=== PATIENT | female | born 1950 ===

== ENCOUNTER 2023-05-24 19:42 | Emergency (ER) | payer MEDICARE, SELFPAY ==
--- NOTE | ~2023-05-24 | XR_ITS ---
EXAMINATION: XR ELBOW, LEFT CLINICAL INFORMATION: Pain status-post fall. COMPARISON: None available. TECHNIQUE: AP, lateral, and oblique views of the left elbow. FINDINGS: The bones and soft tissues are normal. No fracture or joint effusion. Alignment is anatomic. Joint spaces are maintained. XR/XR elbow LT 2V IMPRESSION: Normal left elbow.
--- NOTE | ~2023-05-24 | CT_ITS ---
EXAMINATION: CT PELVIS WITHOUT CONTRAST CLINICAL INFORMATION: Pelvis fracture, urinary retention, rule out urologic injury COMPARISON: Radiographs 05/24/2023 TECHNIQUE: Helical scanning was performed with submillimeter collimation through the pelvis. Sagittal and coronal multiplanar 2-D reconstructions were obtained. This CT examination was performed using dose optimization techniques as appropriate, variously including the following: *Automated exposure control *Adjustment of mA and/or kV according to patient size (this includes techniques or standardized protocols for targeted exams where dose is matched to indication/reason for exam; i.e. extremities or head) *Use of iterative reconstruction technique DLP: 410 mGy-cm FINDINGS: There are mildly displaced fractures of the left superior and inferior pubic rami. Alignment across the hips is anatomic. Sacroiliac joints and pubic symphysis are intact with degenerative change. Moderately distended urinary bladder without wall thickening. There is mild hematoma adjacent to the left aspect of the bladder in keeping with sequelae of pelvic fractures, without findings to suggest bladder injury. Uterus and adnexa are grossly unremarkable. Included portions of the small and large bowel show no evidence of obstruction or significant wall thickening. Colonic diverticulosis is noted. The appendix is unremarkable. No free air identified. There is scattered atherosclerotic calcification. CT/CT pelvis wo IV con IMPRESSION: Mildly displaced fractures of the left superior and inferior pubic rami. Mild adjacent hematoma, without findings to suggest bladder injury.
--- NOTE | ~2023-05-24 | XR_ITS ---
EXAMINATION: XR HIP, LEFT WITH AP PELVIS CLINICAL INFORMATION: Pain status-post fall. COMPARISON: None available. TECHNIQUE: AP and frog-leg lateral views of the left hip are submitted, together with frontal views of the pelvis. FINDINGS: There are displaced fractures of the left superior and inferior pubic rami. The pubic symphysis is intact. The acetabular joint spaces are symmetric and well-maintained. The femoral heads are smooth. The sacroiliac joints are symmetric and well-maintained. There is an incompletely characterized lower lumbar levoscoliosis. XR/XR hip LT w PEL1V IMPRESSION: There are displaced fractures of the left superior and inferior pubic rami.
[2023-05-24 20:02] VITALS: BP 138/61; PULSE 87; RESP 18; TEMP 36.5; O2SAT 97; BMI 25.3
[2023-05-24 23:29] VITALS: BP 123/65; PULSE 79; RESP 18; TEMP 36.1; O2SAT 99
--- NOTE | 2023-05-24 23:52 | ED.FALL ---
HPI - Fall General Chief Complaint: Fall Stated Complaint: Knocked down my two dogs,lt elbow lt hip pain Time Seen by Provider: 05/24/23 23:29 Source: patient and family Mode of arrival: EMS Limitations: no limitations History of Present Illness HPI Narrative: Patient comes to the emergency room complaining of a fall. Patient states that she was walking her son's dog. Suddenly, 2 pit bull dogs jumped on her causing her to fall. Patient complaining of left elbow pain and swelling. However, patient complaining mostly about left-sided hip pain. Patient is unable to stand up. Patient has severe left hip pain. Patient states that she did not hit her head or lost consciousness. Patient denies being on blood thinners Related Data Allergies Allergy/AdvReac Type Severity Reaction Status Date / Time No Known Allergies Allergy Verified 05/24/23 23:58 Review of Systems Review of Systems: Constitutional : No Weight loss, No Fever, No Chills, No Night Sweats, No Fatigue, No Malaise ENT/Mouth : No Hearing loss, No Ear Pain, No Nasal Congestion, No Sinus Pain, No Hoarseness, No sore throat, No Rhinorrhea, No Swallowing Difficulty Eyes: No Eye Pain, No Swelling, No Redness, No Foreign Body, No Discharge, No Vision Changes Cardiovascular : No Chest Pain, No SOB, No Dyspnea on Exertion, No Orthopnea, No Edema, No Palpitations Respiratory : No Cough, No Sputum, No Wheezing, No Smoke Exposure, No Dyspnea Gastrointestinal : No Nausea, No Vomiting, No Diarrhea, No Constipation, No abdominal Pain, No Hematochezia, No Melena Genitourinary : no irregular bleeding, No Dysuria, No Urinary Frequency, No Hematuria, No Urinary Incontinence, No Urgency, No Flank Pain, No Urinary Flow Changes, No Hesitancy Musculoskeletal : Complaining of left elbow pain, complaining of left hip pain Skin : Complaining of a skin abrasion to the elbow Neuro : No Weakness, No Numbness, No Paresthesias, No Loss of Consciousness, No Dizziness, No Headache Psych : No Anxiety/Panic, No Depression, No SI/HI/AH/VH, No Social Issues, Heme/Lymph: No Bruising, No Bleeding,No Lymphadenopathy Endocrine : No Polyuria, No Polydipsia, No Temperature Intolerance PMFSH Social History Social History Alcohol intake: never Use of substances other than those prescribed or required for medical reasons: No Advance Directives: No Advance Directives Information Provided: No Physical Exam Vital Signs: Vital Signs: Last Vital Signs Temp 97.0 F 05/24/23 23:29 Pulse 79 05/24/23 23:29 Resp 18 05/24/23 23:29 BP 123/65 05/24/23 23:29 Pulse Ox 99 05/24/23 23:29 O2 Del Method Room Air 05/24/23 23:29 BMI result Body Mass Index 25.3 Const: Other: Appearance: Alert. Oriented X3. No acute distress. Eyes: Pupils equal, round and reactive to light. ENT: Pharynx normal. Neck: Normal inspection. Neck supple. No lymph nodes noted. No crepitus CVS: Normal heart rate and rhythm. Pulses normal. Normal S1 and S2 Respiratory: No respiratory distress. Breath sounds normal. No Wheezing. No rales Abdomen: Soft and nontender. No rigidity. No distention. Skin: Skin warm and dry. Normal skin color. Normal skin turgor. Extremities: No lower extremity edema. No Lacerations. No Rash there is an abrasion to the left elbow, bleeding controlled, no stitches needed. Patient unable to move or even move/flex or extend the hip on the left side due to severe pain Neuro: Oriented X 3. No motor deficit. No sensory deficit. Moving all extremities. No slurred speech. CN 2 through 12 grossly intact Psych: calm, cooperative, normal affect Course Course Course Narrative: - Medications Administered Discontinued Medications Generic Name Dose Route Start Last Admin Trade Name Minaq PRN Reason Stop Dose Admin Tramadol HCl 50 mg 05/24/23 23:49 05/25/23 00:00 Tramadol Hcl 50 Mg Tablet PO 05/24/23 23:50 50 mg ONCE ONE Administration Medical Decision Making Medical Decision Making [facility] Narrative: -on arrival, patient seems to be on significant amount of pain. Observation/admission being considered. -my interpretation of the hip and pelvis x-ray on the left: Fractured pelvis inferior and posterior ramus -patient was given 1 dose of p.o. tramadol. At this time patient declined anything stronger. -patient lives by herself. Case management and physical therapy evaluation will be done in the morning. Patient and her sons have a preference for home PT -patient has new onset urinary retention. -CT scan of the pelvis has been ordered to rule out urologic injury -Johnson catheter will be inserted Differential Diagnosis Differential Diagnoses: The differential diagnosis associated with the presentation includes (Pelvis fracture, hip fracture, femur fracture, contusion, dislocation) Admission/Observation Consideration of admission/observation: Escalation of care including admission/observation considered Radiology Impression Discussion of test interpretation with radiology: I have reviewed the radiologist's reading. Radiologist Impression: FINDINGS: There are displaced fractures of the left superior and inferior pubic rami. The pubic symphysis is intact. The acetabular joint spaces are symmetric and well-maintained. The femoral heads are smooth. The sacroiliac joints are symmetric and well-maintained. There is an incompletely characterized lower lumbar levoscoliosis. XR/XR hip LT w PEL1V IMPRESSION: There are displaced fractures of the left superior and inferior pubic rami. FINDINGS: The bones and soft tissues are normal. No fracture or joint effusion. Alignment is anatomic. Joint spaces are maintained.? XR/XR elbow LT 2V IMPRESSION: Normal left elbow. FINDINGS: There are mildly displaced fractures of the left superior and inferior pubic rami. Alignment across the hips is anatomic. Sacroiliac joints and pubic symphysis are intact with degenerative change. Moderately distended urinary bladder without wall thickening. There is mild hematoma adjacent to the left aspect of the bladder in keeping with sequelae of pelvic fractures, without findings to suggest bladder injury. Uterus and adnexa are grossly unremarkable. Included portions of the small and large bowel show no evidence of obstruction or significant wall thickening. Colonic diverticulosis is noted. The appendix is unremarkable. No free air identified. There is scattered atherosclerotic calcification. CT/CT pelvis wo IV con IMPRESSION: Mildly displaced fractures of the left superior and inferior pubic rami. Mild adjacent hematoma, without findings to suggest bladder injury. ? ? Critical Care Time Critical Care Time Critical Care Time: Yes Total Critical Care Time: 60 Attestation: I have personally provided critical care time. Time includes review of lab data, radiology results, discussion with consultants, and monitoring for potential decompensation. Intervention performed as documented. Discharge Plan Discharge Clinical Impression: Acute urinary retention, Pelvic fracture Patient Disposition: Still a Patient
--- NOTE | 2023-05-25 01:00 | PC.NURSE ---
Pt A&Ox4, reports 8/10 left hip pain after falling outdoor. Med given as documented. Pt states feeling like she has to urinate after finishing with pressure , Dr. Tejada notified, Pt bladder scan >474 mL, plan for Johnson placement.
--- NOTE | 2023-05-25 02:07 | PC.NURSE ---
16F vo cath placed, draining clear, yellow urine, Pt tolerated well.
[2023-05-25 05:11] VITALS: BP 115/65; PULSE 74; RESP 16; TEMP 37.2; O2SAT 96
[2023-05-25 07:50] VITALS: BP 115/65; PULSE 74; O2SAT 96
--- NOTE | 2023-05-25 08:47 | PHA.MEDREC ---
Pharmacy Consult ? Medication Reconciliation Pharmacy has completed the medication reconciliation.
[2023-05-25 09:06] LABS: Basophils Percent Auto 0.1 % (0-2); Eosinophils Percent Auto 0.1 % (0-4); Hematocrit 37.5 % (37.0-47.0); Hemoglobin 12.4 g/dl (12.0-16.0); Imm Gran Abs Auto 0.03 X10*3/uL (0.00-0.03); Imm Gran Pct Auto 0.4 % (0.0-0.4); Lymphocytes Absolute Auto 0.9 X10*3/uL (1.2-4.9); Lymphocytes Percent Auto 10.6 % (20-40); MANUAL DIFF FLAG NO; Mean Corpuscular HGB Conc 33.1 g/dl (31.0-35.0); Mean Corpuscular Hemoglobin 29.2 pg (27.0-33.0); Mean Corpuscular Volume 88.4 fL (80.0-98.0); Mean Platelet Volume 9.4 fL (9.4-12.3); Monocytes Absolute Auto 0.4 X10*3/uL (0.1-1.2); Monocytes Percent Auto 4.9 % (2-11); Neutrophils Percent Auto 83.9 % (45-73); Platelet Count 200 X10*3/uL (160-400); Red Blood Count 4.24 X10*6/uL (4.20-5.50); Red Cell Distribution Width 13.8 % (11.0-16.0); White Blood Count 8.3 X10*3/uL (4.8-10.8)
[2023-05-25 09:14] LABS: Appearance Urine Clear; Color Urine Yellow; Glucose Urine UA Negative (Negative); Leukocyte Esterase Urine Trace (Negative); Nitrite Urine Negative (Negative); Specific Gravity - Urine 1.015 (1.005-1.025); UMIC TRIGGER UACC YES; Urine Blood Negative (Negative); Urine Ketones Trace mg/dL (Negative); Urine Protein Negative (Neg-Trace)
[2023-05-25 09:19] LABS: Bacteria Urine None Seen (None Seen); Hyaline Casts Urine 0-2 /LPF (0-2); Squamous Epithelial Cell Urine 0-2 /HPF (0-2); WBC Urine 0-5 /HPF (0-5)
[2023-05-25 09:19] LABS: Alanine Aminotransferase 19 U/L (0-31); Albumin Level 3.9 g/dL (3.5-5.0); Alkaline Phosphatase 63 U/L (39-117); Anion Gap 13 (12-20); Aspartate Amino Transferase 23 U/L (5-31); Bilirubin Direct 0.2 mg/dL (0.0-0.5); Bilirubin Total 0.6 mg/dL (0.0-1.0); Blood Urea Nitrogen 15 mg/dL (9-16); Calcium 8.7 mg/dL (8.4-10.2); Carbon Dioxide 22 mmol/L (22-29); Chloride 107 mmol/L (96-108); Creatinine Clr Calc Pharmacy 56.4; Estimated Glomerular Filt Rate > 60; Glucose Random 133 mg/dL (60-115); Sodium 138 mmol/L (135-145); Total Protein 6.7 g/dL (6.5-8.0)
[2023-05-25 09:32] VITALS: BP 123/63; PULSE 76; RESP 16; TEMP 36.9; O2SAT 95
--- NOTE | 2023-05-25 09:38 | PC.NURSE ---
pt a&ox3. respirations even and unlabored. skin warm pink and dry. pt reports pain 5/10 to left hip when laying down but increases to 10/10 with any slight movements. vss.
--- NOTE | 2023-05-25 09:48 | PC.NURSE ---
[facility]
[2023-05-25 10:57] VITALS: BP 147/72; PULSE 78; RESP 18; TEMP 36.4; O2SAT 97
--- NOTE | 2023-05-25 13:43 | MHC.CM.ED ---
Addendum entered by Louise Finley 05/25/23 14:30: [facility] is able to offer a bed. Patient can leave at 6pm. Dax JARRETT booked. [facility] with chart. Patient, son Lori Martina RN and Fernanda SHERIDAN aware. Original Note: Received case management consult overnight. Patient came to the ER after a fall. Found to have a pelvic fracture. No surgical intervention indicated. Physical therapy eval completed. Rehab is recommended. Met with patient in regards to discharge planning. Patient lives alone, ambulates independently, and had no services prior to coming to the ER. Patient denies having a HCP. Patient hasn't received any Covid vaccines. Patient denies having a HCP. Patient has not been hospitalized in the past 30 days. Patient agreeable to referral being brodacasted in [facility]. [facility] would be 1st choice. Referrals made via [facility]. Continue to monitor for d/c needs.
[2023-05-25 14:00] VITALS: BP 131/63; PULSE 79; RESP 16; TEMP 37.2; O2SAT 97
[2023-05-25 15:43] VITALS: BP 134/63; PULSE 79; RESP 18; TEMP 36.1; O2SAT 96
[2023-05-25 15:54] LABS: COVID-19 Test Negative (Negative); IDNOW Serial# 9DB6401D
[2023-05-25] MEDS: traMADoL HCL 50 MG TABLET PO ×2 (17:11)
--- NOTE | 2023-05-25 18:22 | PC.NURSE ---
pt A/Ox3, pleasant and cooperative. Reporting some pain to pelvis when repo in bed or using bedpan, tramadol given with +effect. Planning to d/c to [facility] at 1800
--- NOTE | 2023-05-25 19:22 | PC.NURSE ---
patient in the process of being transferred out all paperwork will be given to the EMS patient is aware of the arrangement
== END 2023-05-25 19:26 ==
PROVIDERS: Physician Assistant; Emergency Provider Emergency Medicine
DX: S32.9XXA Fracture of unspecified parts of lumbosacral spine and pelvis, initial encounter for closed fracture (principal); R33.9 Retention of urine, unspecified; R51.9 Headache, unspecified; M54.2 Cervicalgia; M25.522 Pain in left elbow; R26.2 Difficulty in walking, not elsewhere classified; W01.0XXA Fall on same level from slipping, tripping and stumbling without subsequent striking against object, initial encounter; Y93.9 Activity, unspecified; Y92.9 Unspecified place or not applicable; Y99.9 Unspecified external cause status; Z20.822 Contact with and (suspected) exposure to COVID-19; Z20.828 Contact with and (suspected) exposure to other viral communicable diseases; Z79.899 Other long term (current) drug therapy
CPT/HCPCS: 36415; 72192; 73070; 73502; 80048; 80076; 81001; 85025; 87635; 97162; 99285